=== PATIENT | female | born 1950 | race Caucasian/White ===

== ENCOUNTER 2016-11-12 06:55 | Day surgery (SDC) | payer BC ==
[2016-11-11 17:15] VITALS: BMI 43.0
[~2016-11-12] VITALS: Ht 160 cm; Wt 109.7 kg
[2016-11-12] VITALS (15 sets, daily range): BP systolic 150–191; BP diastolic 52–93; PULSE 61–95; RESP 10–85; Ht 160 cm; Wt 109.7 kg
[~2016-11-12 06:55] MED LIST: CLON-230 PO; DOCU-216 PO; HUMULIN R; HYDR-3498 PO; INSU100I15; INSU100V14; METO-103 PO; NIFE60TA7 PO; OMEP20CA16 PO; SEVE800T7 PO
[2016-11-12] MEDS ORDERED: GELATIN SIZE 100 SPONGE TOP ONE (07:00)
[2016-11-12] MEDS ORDERED: LIDOCAINE 1% (MPF) 30 ML INJ INJ ONE (07:00)
[2016-11-12] MEDS ORDERED: THROMBIN 5000 UNIT VIAL TOP ONE (07:00)
[2016-11-12] MEDS ORDERED: HEPARIN 1000 UNITS/ML 10 ML INJ IRR ONE (07:00)
[2016-11-12] MEDS ORDERED: GELATIN SIZE 100 SPONGE ONE (07:25)
[2016-11-12] MEDS ORDERED: LIDOCAINE 1% (MPF) 30 ML INJ ONE (07:25)
[2016-11-12] MEDS ORDERED: HEPARIN 1000 UNITS/ML 10 ML INJ ONE (07:25)
[2016-11-12] MEDS ORDERED: THROMBIN 5000 UNIT VIAL ONE (07:26)
[2016-11-12] MEDS ORDERED: NIFE60TA7 PO (07:43)
[2016-11-12] MEDS ORDERED: METO-429 PO (07:43)
[2016-11-12] MEDS ORDERED: OMEP20CA16 PO (07:43)
--- NOTE | 2016-11-12 07:44 | RADRPT ---
PROCEDURE: XR Chest. CLINICAL INDICATION: Preop TECHNIQUE: An AP view of the chest was obtained. COMPARISON: No prior exam is available for comparison. FINDINGS: There is a right chest Perma-Cath with tip in the mid SVC. There is prominence of the interstitial markings. There is a 4 mm right mid lung granuloma. No pleu ral effusion or pneumothorax is seen. The cardiomediastinal silhouette is within normal limits for size. Calcifications are seen within the aortic arch. The osseous structures demonstrate senescent changes. IMPRESSION: 1. No radiographic evidence of acute cardiopulmonary disease. 2. Chronic-appearing interstitial changes. 3. 4 mm right mid lung granuloma. 4. Aortic atherosclerosis. 5. Right chest Perma-Cath with tip in the mid SVC. RPTAT: HH .Zulma Monzon MD, Date Time Electronically viewed and signed by .Zulma Monzon MD, on 11/12/2016 07:43 .G/
[2016-11-12] MEDS ORDERED: LANTUS (07:46)
[2016-11-12] MEDS ORDERED: CLON-379 PO (07:46)
[2016-11-12] MEDS ORDERED: HUMULIN (07:46)
[2016-11-12] MEDS ORDERED: SEVE800T7 PO (07:46)
[2016-11-12] MEDS ORDERED: LIDOCAINE 2% (SDV) 5 ML INJ ONE (08:02)
[2016-11-12] MEDS ORDERED: FENTAnyl 50 MCG/ML VIAL ONE (08:02)
[2016-11-12] MEDS ORDERED: ETOMIDATE 20 MG INJ ONE ×2 (08:02)
[2016-11-12 08:05] LABS: BASOPHIL # 0.1 10^3/ul (0.0-0.1); BASOPHILS % 0.7 % (0.0-2.0); EOSINOPHILS # 0.3 10^3/ul (0.0-0.5); EOSINOPHILS % 3.4 % (0.0-7.0); HEMATOCRIT 36.8 % (37.0-47.0); HEMOGLOBIN 12.4 g/dl (12.0-16.0); LYMPHOCYTES # 2.6 10^3/ul (0.8-2.9); MEAN CORPUSCULAR HEMOGLOBIN 32.8 pg (29.0-33.0); MEAN CORPUSCULAR HGB CONC 33.7 g/dl (32.0-37.0); MEAN CORPUSCULAR VOLUME 97.2 fl (82.0-101.0); MEAN PLATELET VOLUME 8.6 fl (7.4-10.4); MONOCYTE # 0.9 10^3/ul (0.3-0.9); MONOCYTES % 10.5 % (0.0-11.0); NEUTROPHIL # 4.4 10^3/ul (1.6-7.5); NEUTROPHILS % 53.4 % (39.0-77.0); PLATELET COUNT 161 10^3/UL (140-440); RED BLOOD COUNT 3.79 10^6/ul (4.20-5.40); UNCORRECTED WBC 8.2 10^3/ul (4.8-10.8); WHITE BLOOD COUNT 8.2 10^3/ul (4.8-10.8)
[2016-11-12 08:08] LABS: INR 1.07; PROTIME 13.9 Sec (12.2-14.2); PT RATIO 1.1
[2016-11-12 08:09] LABS: ALBUMIN/GLOBULIN RATIO 0.97; BILIRUBIN,INDIRECT 0.1 mg/dl (0-1.1); BILIRUBIN,TOTAL 0.1 mg/dl (0.2-1.3); PARTIAL THROMBOPLASTIN TIME 34.4 Sec (25.0-35.0); TOTAL PROTEIN 8.1 g/dl (6.1-8.1)
[2016-11-12 08:16] LABS: CALCIUM 9.4 mg/dl (8.4-10.2); CREATININE 7.83 mg/dl (0.44-1.00); POTASSIUM 5.6 mmol/L (3.5-5.1)
[2016-11-12 08:18] LABS: CONDITION 1
[2016-11-12] MEDS ORDERED: CEFAZOLIN 1 GM INJ ONE (08:20)
[2016-11-12] MEDS ORDERED: DEXAMETHASONE 4 MG/ML 1 ML INJ ONE (08:58)
[2016-11-12] MEDS ORDERED: ONDANSETRON 4 MG INJ ONE (09:51)
[2016-11-12] MEDS ORDERED: MEPERIDINE 25 MG INJ IV PRN (10:00)
[2016-11-12] MEDS ORDERED: ONDANSETRON 4 MG INJ IV PRN (10:00)
[2016-11-12] MEDS ORDERED: LABETALOL HCL 20MG INJ IV PRN (10:00)
[2016-11-12] MEDS ORDERED: hydrALAzine 20 MG INJ IV PRN (10:00)
[2016-11-12] MEDS ORDERED: FENTAnyl 50 MCG/ML VIAL IV PRN ×3 (10:00)
[2016-11-12] MEDS ORDERED: HYDROmorphONE (0.2 MG/ML) 10ML SYG IV PRN ×3 (10:00)
[2016-11-12] MEDS ORDERED: METOCLOPRAMIDE 10 MG INJ IV PRN (10:00)
[2016-11-12] MEDS ORDERED: hydrALAzine 20 MG INJ IV ONE (11:30)
--- NOTE | 2016-11-12 12:13 | OPR ---
DATE OF OPERATION: 11/12/2016 PREOPERATIVE DIAGNOSIS: End-stage renal disease with thrombosed right arm arteriovenous graft. POSTOPERATIVE DIAGNOSIS: End-stage renal disease with thrombosed right arm arteriovenous graft. PROCEDURE PERFORMED: Revision of right upper arm AV graft with thrombectomy. SURGEON: Yahaira Esquivel MD ANESTHESIA: LMA anesthesia. ESTIMATED BLOOD LOSS: 50 mL. COMPLICATIONS: There are no intra-procedural complications. INDICATIONS: This is a 66-year-old morbidly obese diabetic hypertensive woman with end-stage renal disease who has been on dialysis for several years. She has multiple failed accesses in both upper extremities and both legs. Brought in today to try to make a right arm AV graft. She has a right u pper arm AV graft that thrombosed several months ago. I tried to revise it, and I was able to open up the outflow, but I could not get any inflow, so I essentially just created a new graft to the axi llary vein higher up in the arm in a vein that I found above the previous graft. DESCRIPTION OF PROCEDURE: The patient was brought to the operating room and placed on the table in supine position. After induction of general endotracheal anesthesia, the right arm was prepped and draped in the usual sterile fashion. I began by making an incision in the upper medial arm extendin g up into the axilla over the previous incision. I dissected down through the subcutaneous tissues using electrocautery. I identified the previous graft. The vein that it was sewn to was just compl etely sclerotic and occluded distally. I did find a nice axillary vein that was a little more media l and higher in the incision. I saw this on ultrasound, I knew it was there, and that is why I was looking for it. Diameter was not huge, but of reasonable size. I exposed that and then I cut the p revious graft, right at the anastomosis. Again this was an occluded graft. I then passed a Ashley catheter and tried to pull the thrombus out. I could get the thrombus out down to the arterial alirio stomosis, but then I could not pass the catheter any further. I made an incision in the mid arm ove r the graft and tried to place a catheter for a little lower down in the arm. I was able to pull ou t some clot, but essentially was unable to get the arterial anastomosis reopened, so I just abandone d the old graft after attempts to salvage it. I then made an incision over the brachial artery just above the elbow, dissected down through the subcutaneous tissue, and exposed the brachial artery ju st above the elbow in a fresh plane. I had already had the vein exposed in the upper arm. I then t unneled the 6 mm Artegraft between the 2 incisions using the Luz-Wick tunneler. I clamped the axi llary vein proximally and distally, made along 1.5 cm venotomy and spatulated the end of the graft t o fit the vein. Then anastomosed the end of graft to the side of the vein using 6-0 Prolene suture in a running standard vascular surgical fashion. I removed the clamps. I flushed the graft. There was good backflow. It was patent and there was good flow from the graft. I then clamped the brach ial artery proximally and distally, made an 8 mm long anterior arteriotomy. I then anastomosed the proximal end of graft to the side of the brachial artery using 6-0 Prolene suture in a running semi- vascular surgical fashion. I removed the clamps. There was a good thrill. There was good hemostas is. I closed the skin incisions in 2 layers using an inner layer of 3-0 Vicryl and an outer layer o f 4-0 Monocryl subcuticular sutures. Sterile dressing was applied. The patient was extubated in th e operating room and transferred to the recovery room in stable condition. He tolerated the procedu re well without any complication. Dictated By: YAHAIRA MCNAMARA/JOHN Conf#: [id number] DID#: [id number] CC: REGINA LUCIO MD;*EndCC*
--- NOTE | 2016-11-16 10:57 | RADRPT ---
Vent Rate: 67 bpm RR Interval: 0 msec SC Interval: 272 msec QRS Duration: 84 msec QT Interval: 398 msec QTC Interval: 420 msec P-R-T [place]: 54 - 9 - 51 degrees Sinus rhythm with 1st degree AV block Cannot rule out Anterior infarct , age undetermined Abnormal ECG Electronically Signed By: Elliot Frey [id number]
== END 2016-11-12 13:16 | disposition home or self-care (01) ==
LOC: SDS 06:55 → MERGE 06:55 → SDS 07:01
PROVIDERS: ATTEND Surgery Vascular Surgery
DX: T82.868A Thrombosis due to vascular prosthetic devices, implants and grafts, initial encounter (principal); Y84.1 Kidney dialysis as the cause of abnormal reaction of the patient, or of later complication, without mention of misadventure at the time of the procedure; Y92.89 Other specified places as the place of occurrence of the external cause; I12.0 Hypertensive chronic kidney disease with stage 5 chronic kidney disease or end stage renal disease; N18.6 End stage renal disease; Z99.2 Dependence on renal dialysis; E11.9 Type 2 diabetes mellitus without complications
CPT/HCPCS: 36833; 71010; 80053; 82962; 85025; 85610; 85730; 93005; C1768; J0360; J0690; J1100; J1644; J2405; J3010; Z7512; Z7610; C1725

== ENCOUNTER 2016-12-29 11:00 | Day surgery (SDC) | payer BC, OTHER ==
[~2016-12-29] VITALS: Ht 160 cm; Wt 114.5 kg
[~2016-12-29 11:00] MED LIST changes: +CLON-379 PO; +HUMULIN; +LANTUS; +METO-429 PO
[2016-12-29] MEDS ORDERED: CLON-379 PO (11:31)
[2016-12-29] MEDS ORDERED: NIFE60TA36 PO (11:32)
[2016-12-29] MEDS ORDERED: DOCU-159 PO (11:32)
[2016-12-29] MEDS ORDERED: NIFE30TA60 PO (11:32)
[2016-12-29] MEDS ORDERED: OMEP20CA16 PO (11:33)
[2016-12-29] MEDS ORDERED: HYDR-906 PO (11:33)
[2016-12-29] MEDS ORDERED: SODI325T PO (11:34)
[2016-12-29] MEDS ORDERED: LANT3I SC (11:34)
[2016-12-29] MEDS ORDERED: INSU100V3 IJ (11:35)
[2016-12-29] MEDS ORDERED: METO25TA7 PO (11:35)
[2016-12-29 12:36] VITALS: Ht 160 cm; Wt 114.5 kg
[2016-12-29 12:42] VITALS: BP 172/72; PULSE 64; RESP 18
[2016-12-29 12:46] LABS: POTASSIUM 5.3 mmol/L (3.5-5.1)
[2016-12-29 12:50] LABS: CALCIUM 8.6 mg/dl (8.4-10.2); CREATININE 7.56 mg/dl (0.44-1.00)
[2016-12-29] MEDS ORDERED: SOD CHLORIDE 0.9% 500 ML ONE (14:09)
[2016-12-29] MEDS ORDERED: IODIXANOL LOCM 100 ML BTL ONE (14:09)
[2016-12-29] MEDS ORDERED: LIDOCAINE 1% (MDV) 20 ML INJ ONE (14:09)
[2016-12-29 14:58] VITALS: BP 111/56; PULSE 67; RESP 18
--- NOTE | 2016-12-30 07:20 | OPR ---
DATE OF OPERATION: 12/29/2016 PREOPERATIVE DIAGNOSIS: Right arm arteriovenous graft with pulsatility. POSTOPERATIVE DIAGNOSIS: Right arm arteriovenous graft with pulsatility. PROCEDURE PERFORMED: 1. Right arm arteriovenous fistulogram. 2. Percutaneous venoplasty of the venous anastomosis to the axillary vein. 3. Percutaneous covered stent placement from across the venous anastomosis and into the axillary ve in. SURGEON: Yahaira Esquivel MD ANESTHESIA: Local anesthesia. ESTIMATED BLOOD LOSS: Minimal. COMPLICATIONS: No intraprocedural complications. INDICATIONS: This is a 66-year-old woman with a long history of diabetes, hypertension, end-stage r enal disease, morbidly obese. She has had multiple AV accesses in the past in both arms and both le gs. She most recently had placed a right upper arm AV graft. It was a redo graft and had initially an excellent soft thrill and developed pulsatility over the last several weeks. I brought her in [facility] [place] for fistulogram prior to removing her PermCath. PROCEDURE: The patient was brought to the labor commissioner, placed on the table in supine position. Right arm was prepped and draped in the usual sterile fashion. I began by infiltrating over the right arm AV fistula just above the arterial anastomosis at the elbow. I then entered the graft using a micr opuncture needle, an 0.018 wire was inserted through the needle into the graft and a micropuncture s nallely was advanced over the wire into the graft. I then did an AV fistulogram which identified that the arterial anastomosis is widely patent. The graft was widely patent, just distal to the venous anastomosis. The axillary vein was very sclerotic and 95% blocked. Distal to that, the axillary ve in and the central veins were patent. I advanced an 0.035 Glidewire through the micropuncture sheat h and into the central veins. I then placed a 7-Khmer sheath over the wire into the graft. I then angioplastied the venous anastomosis with a 7 mm x 4 cm balloon to 20 atmospheres with some residua l irregularity at the anastomosis and given her history of recurrent intimal hyperplasia very rapidl y, I decided to place a Viabahn covered stent across the venous anastomosis. I placed an 8 mm x 5 c m Viabahn across the venous anastomosis and postdilated within the graft using a 7 x 40 balloon and then fistulogram showed the graft is now widely patent, but there was extravasation just distal to t he stent. I am not sure exactly how the ____perforated the vein, so I placed a second stent and ano ther 8 x 50 Viabahn more distally up into the axillary vein, covering the area of where the disrupti on was. I did not post-dilate. The stent opened completely. There was a good thrill in the graft. Completion fistulogram showed no more extravasation. There was brisk flow through the graft, no r esidual stenosis at the venous anastomosis or in the axillary vein. I was happy with the results. I removed the catheter sheaths and wires and I closed the puncture site with 4-0 Monocryl pursestrin g suture. Sterile dressing was applied and patient was discharged home. She tolerated the procedur e well without any complications. Dictated By: YAHAIRA MCNAMARA/JOHN Conf#: [id number] DID#: [id number] CC: REGINA LUCIO MD;*EndCC*
== END 2016-12-29 15:00 | disposition home or self-care (01) ==
LOC: SDS 11:00
PROVIDERS: ATTEND Surgery Vascular Surgery
DX: T82.591A Other mechanical complication of surgically created arteriovenous shunt, initial encounter (principal); Y71.3 Surgical instruments, materials and cardiovascular devices (including sutures) associated with adverse incidents; I87.1 Compression of vein; E11.22 Type 2 diabetes mellitus with diabetic chronic kidney disease; I12.0 Hypertensive chronic kidney disease with stage 5 chronic kidney disease or end stage renal disease; N18.6 End stage renal disease; E66.01 Morbid (severe) obesity due to excess calories; Z68.41 Body mass index [BMI] 40.0-44.9, adult
CPT/HCPCS: 36903; 80048; 82962; C1725; C1769; C1875; C1894; J7040; Q9967; Z7610